=== PATIENT | male | born 1960 | race Caucasian/White ===

== ENCOUNTER 2018-06-22 06:37 | Outpatient (CLI) | payer OTHER | END 2018-06-22 07:13 | disposition home or self-care (01) | LOC: LAB 06:37 → RAD 06:37 → LAB 07:13 | DX: C64.1 Malignant neoplasm of right kidney, except renal pelvis (principal); I25.10 Atherosclerotic heart disease of native coronary artery without angina pectoris ==

== ENCOUNTER 2018-07-20 05:25 | Inpatient (IN) | payer OTHER ==
[~2018-07-20] VITALS: Ht 167.6 cm; Wt 97.5 kg
[~2018-07-20 05:25] MED LIST: GABAPENTIN400 MG PO; NORVASC5 MG PO; XANAX XR2 MG PO
== END 2018-07-22 10:33 | disposition home or self-care (01) | DRG 658 ==
LOC: O/R 05:25 → SURG 13:24 → SURH 16:55 → SURG 07-22 10:33
PROVIDERS: Urology
PROC: 0TB60ZZ Excision of Right Ureter, Open Approach (ICD-10-PCS; 2018-07-20)
PROC: 0TT00ZZ Resection of Right Kidney, Open Approach (ICD-10-PCS; principal; 2018-07-20 07:00)
DX: C64.1 Malignant neoplasm of right kidney, except renal pelvis (principal); E66.8 Other obesity; Z68.39 Body mass index [BMI] 39.0-39.9, adult; I10 Essential (primary) hypertension

== ENCOUNTER 2018-07-28 08:28 | Outpatient (CLI) | payer OTHER | END 2018-07-28 08:36 | disposition home or self-care (01) | LOC: LAB 08:28 | DX: N19 Unspecified kidney failure (principal) ==